=== PATIENT | female | born 1990 | race Two or more races ===

== ENCOUNTER 2021-04-04 16:06 | Emergency (ER) | payer BC, OTHER ==
[~2021-04-04] VITALS: Ht 157.5 cm; Wt 70.3 kg
[2021-04-04 17:06] VITALS: BP 127/83
== END 2021-04-04 17:50 | disposition home or self-care (01) ==
LOC: ER 16:06
DX: L03.012 Cellulitis of left finger (principal); H66.92 Otitis media, unspecified, left ear